=== PATIENT | female | born 1950 | race Caucasian/White ===

== ENCOUNTER 2016-06-02 18:45 | Emergency (ER) | payer BC, OTHER ==
[~2016-06-02 18:45] MED LIST: AMLO-110 PO; LISI-461 PO; TRIATAB3 PO
[2016-06-02 18:48] VITALS: BP 154/86; TEMP 36.4; Ht 157.5 cm
--- NOTE | 2016-06-02 19:25 | DIAGNOSTIC IMAGING REPORT ---
RIGHT KNEE 3 VIEWS HISTORY: Fall. Right knee pain. COMPARISON: None. FINDINGS: There is no fracture or dislocation. Mild cartilage space narrowing within the medial compartment of the knee. Mild patella baja. Small joint effusion. Extensive anterior soft tissue swelling. There is also soft tissue swelling and indistinctness at the quadriceps tendon. These findings are highly suspicious for quadriceps tendon tear. No radiopaque foreign bodies. IMPRESSION: 1. The above findings are highly suspicious for a quadriceps tendon tear. This can be confirmed with follow-up nonemergent MRI. 2. Small joint effusion. 3. No fractures within the right knee. Electronically signed by: Abbe Odom M.D. 06/02/2016 7:24 PM Dictated Date/Time: 06/02/2016 7:21 PM
[2016-06-02] MEDS ORDERED: ANAS1TAB6 PO (19:29)
[2016-06-02] MEDS ORDERED: PERCOCET HOME PACK PO ONE (20:00)
[2016-06-02] MEDS ORDERED: OXYCODONE/ACETAMINOPHEN 5-325 TAB PO ONE (20:00)
--- NOTE | 2016-06-02 20:04 | EMERGENCY ROOM VISIT NOTE ---
ED Visit Note First contact with patient: 18:55 I have seen and examined this patient with Meir Chávez and generally agree with the treatment plan as discussed. Current/Historical Medications Scheduled Amlodipine (Norvasc), 10 MG PO DAILY Anastrozole (Anastrozole), 1 TAB PO DAILY Lisinopril (Lisinopril), 10 MG PO DAILY Triamterene/Hctz (Triamterene/Hctz 37.5-25MG), 1 TAB PO DAILY Allergies Coded Allergies: No Known Allergies (Unverified , 06/02/16) Vital Signs Date Time Temp Pulse Resp B/P Pulse Ox O2 Delivery O2 Flow Rate FiO2 06/02/16 18:48 36.4 92 18 154/86 96 Room Air Departure Information Referrals Trina Campbell PA-C (PCP) Patient Instructions My [facility]
[2016-06-02] MEDS ORDERED: OXYC-57 PO (20:09)
--- NOTE | 2016-06-02 20:10 | EMERGENCY ROOM VISIT NOTE ---
ED Visit Note First contact with patient: 18:55 Chief Complaint: RIGHT Knee Injury History of Present Illness: This patient is a 65-year-old female who presents to the Emergency Department this evening for evaluation of their RIGHT Knee Injury. Patient states that they injured the knee while walking down the steps. They report moderate pain over the anterior aspect of the knee after feeling the knee pop. Pain is worse with ambulation. They deny any numbness or tingling into the distal extremity including the toes. They deny any pain extending into the affected foot or leg. Patient reports no previous fractures or surgeries of the affected knee. Patient rates her current discomfort as a 2/10. Patient has tried nothing for their pain. Medications: Reviewed and discussed with the patient. Allergies: No known allergies. PMH: No pertinent past medical history. SHx: Patient is a 65-year-old female who lives locally. ROS: All pertinent positive and negative review of systems are appropriately documented in the History of Present Illness. Physical Exam: VITAL SIGNS - Vital signs and nursing notes were reviewed. GENERAL - 65-year-old female appearing her stated age and in noticeable discomfort throughout the exam. MUSCULOSKELETAL - RIGHT knee with moderate edema noted to the suprapatellar area. Moderate tenderness to palpation appreciated over the affected area. +2/5 strength appreciated RIGHT versus left secondary to patient discomfort. No posterior sag sign. Unable to perform hip extension. NEUROLOGIC/VASCULAR - Neurovascularly intact distally with +3/5 dorsalis pedis pulses palpated bilaterally. Normal sensation to light and sharp touch appreciated distally. IMAGING: RIGHT KNEE 3 VIEWS HISTORY: Fall. Right knee pain. COMPARISON: None. FINDINGS: There is no fracture or dislocation. Mild cartilage space narrowing within the medial compartment of the knee. Mild patella baja. Small joint effusion. Extensive anterior soft tissue swelling. There is also soft tissue swelling and indistinctness at the quadriceps tendon. These findings are highly suspicious for quadriceps tendon tear. No radiopaque foreign bodies. IMPRESSION: 1. The above findings are highly suspicious for a quadriceps tendon tear. This can be confirmed with follow-up nonemergent MRI. 2. Small joint effusion. 3. No fractures within the right knee. ED Course: Patient was seen and evaluated by myself. Patient was provided an ice pack for comfort. Patient initially declined anything for their complaint of pain. X- rays were obtained of the affected knee. Imaging results as above. Images were discussed and reviewed with the patient who acknowledges understanding. Patient was provided a knee immobilizer for their comfort. Patient was provided Percocet for pain control at home. Patient educated on worrisome symptoms for return visit to the emergency department. Patient will follow-up with her established orthopedic surgeon on Sunday. She will return for changing or worsening symptoms. Patient discharged home in good condition. In the evaluation and treatment of this patient, the following differential diagnoses were considered: Patellar Fracture, Tibial Plateau Fracture, Distal Femur Fracture, ACL Injury, PCL Injury, Collateral Ligament Injury, Pes Anserine Bursitis, Maisonneuve Fracture. Given the patient's presentation and exam findings, I did elect to perform the above-mentioned workup. The patient presents today with pain and swelling to the anterior surface of the RIGHT knee. She has decreased range of motion, particularly with extension of the RIGHT lower started. She is unable to lift her heel for the bed. X-ray is concerning for quadriceps muscle tear. The patient is likely experiencing a partial tear of the quadriceps tendon. I do not feel that further imaging studies are necessary at this time. She is established with [facility] orthopedics. She was placed in a knee immobilizer for comfort. She will use crutches for ambulation. She will return to the emergency department for any change or worsening symptoms. Patient discharged home in good condition. Impression: RIGHT Quadriceps Tendon Tear Discharge Instructions: You have been treated in the Emergency Department for a RIGHT Quadriceps Tendon Tear. You have received pain medicine in the emergency department which impairs your ability to operate a vehicle. It is illegal for you to drive after receiving these medicines. You have been prescribed Percocet to be used for pain control. This is a narcotic medication. You cannot drive or consume alcohol while on this medicine. This medicine should only be used for pain that cannot be controlled with jqhm-hpw-khrkyay pain medicines. For pain control, you can use the following djue-ony-odvfzws medicines (if >12 yo): - Regular strength (325mg/tab) Tylenol (acetaminophen) 2 tabs every 4-6 hours as needed. Do not exceed 12 tablets in a 24 hour period. Avoid taking more than 4 grams (4000 mg) of Tylenol per day. This includes any other sources of acetaminophen you may take on a regular basis. - Regular strength (200 mg/tab) Advil (ibuprofen) 1-2 tabs every 4-6 hours as needed. Do not exceed a dose of 3200 mg per day. If this is a recent injury (<24 hrs), ice can be applied to the area of pain for the first 3 days to help decrease pain and inflammation. Ice massages can be performed by freezing water in a paper cup, peeling back the cup to expose the ice and then massaging over the affected area. You have been provided the number for an Orthopaedic Surgeon. You should call this number as soon as possible to establish a follow-up visit from today's Emergency Department visit. Keep the knee brace in place until cleared by Orthopedics. Use the crutches you have been provided to keep ALL weight off of the knee until weight bearing is tolerable. Return to the Emergency Department if your current symptoms worsen despite treatment course outlined above. Current/Historical Medications Scheduled Amlodipine (Norvasc), 10 MG PO DAILY Anastrozole (Anastrozole), 1 TAB PO DAILY Lisinopril (Lisinopril), 10 MG PO DAILY Triamterene/Hctz (Triamterene/Hctz 37.5-25MG), 1 TAB PO DAILY Scheduled PRN Oxycodone/Acetaminophen 5MG/325MG (Percocet 5MG/325MG), 1-2 TABS PO Q4 PRN for Pain Allergies Coded Allergies: No Known Allergies (Unverified , 06/02/16) Vital Signs Date Time Temp Pulse Resp B/P Pulse Ox O2 Delivery O2 Flow Rate FiO2 06/02/16 20:17 86 18 98 06/02/16 18:48 36.4 92 18 154/86 96 Room Air Medications Administered Medications (Trade) Dose Ordered Sig/Zee Route Start Time Stop Time Status Last Admin Dose Admin Oxycodone/ Acetaminophen (Percocet 5-325mg Tab) 1 tab NOW ONCE PO 06/02/16 20:00 06/02/16 20:02 DC 06/02/16 20:00 1 TAB Oxycodone/ Acetaminophen (Percocet 5/ 325MG Home Pack) 1 homepack UD ONCE PO 06/02/16 20:00 06/02/16 20:02 DC 06/02/16 20:00 1 HOMEPACK Departure Information Impression Primary Impression: Quadriceps tendon rupture Dispostion Home / Self-Care Condition GOOD Prescriptions Oxycodone/Acetaminophen 5MG/325MG (PERCOCET 5MG/325MG) Tab 1-2 TABS PO Q4 Y for Pain, #20 TAB For Initial Treatment Prov: Meir Chávez PA-C 06/02/16 Referrals Trina Campbell PA-C (PCP) Fitz Mcintosh M.D. Patient Instructions My [facility] Additional Instructions You have been treated in the Emergency Department for a RIGHT Quadriceps Tendon Tear. You have received pain medicine in the emergency department which impairs your ability to operate a vehicle. It is illegal for you to drive after receiving these medicines. You have been prescribed Percocet to be used for pain control. This is a narcotic medication. You cannot drive or consume alcohol while on this medicine. This medicine should only be used for pain that cannot be controlled with kezt-ldd-gdprmds pain medicines. For pain control, you can use the following rfap-xki-aqddwpl medicines (if >12 yo): - Regular strength (325mg/tab) Tylenol (acetaminophen) 2 tabs every 4-6 hours as needed. Do not exceed 12 tablets in a 24 hour period. Avoid taking more than 4 grams (4000 mg) of Tylenol per day. This includes any other sources of acetaminophen you may take on a regular basis. - Regular strength (200 mg/tab) Advil (ibuprofen) 1-2 tabs every 4-6 hours as needed. Do not exceed a dose of 3200 mg per day. If this is a recent injury (<24 hrs), ice can be applied to the area of pain for the first 3 days to help decrease pain and inflammation. Ice massages can be performed by freezing water in a paper cup, peeling back the cup to expose the ice and then massaging over the affected area. You have been provided the number for an Orthopaedic Surgeon. You should call this number as soon as possible to establish a follow-up visit from today's Emergency Department visit. Keep the knee brace in place until cleared by Orthopedics. Use the crutches you have been provided to keep ALL weight off of the knee until weight bearing is tolerable. Return to the Emergency Department if your current symptoms worsen despite treatment course outlined above. Problem Qualifiers Primary Impression: Quadriceps tendon rupture Encounter type: initial encounter Laterality: right Qualified Codes: S76.111A - Strain of right quadriceps muscle, fascia and tendon, initial encounter
[2016-06-02 20:17] VITALS: PULSE 86; O2SAT 98
[2016-06-06] MEDS ORDERED: ANAS1TAB6 PO (09:25)
[2016-06-06] MEDS ORDERED: AMLO-114 PO (09:25)
[2016-06-06] MEDS ORDERED: LISI-461 PO (09:25)
== END 2016-06-02 20:19 | disposition home or self-care (01) ==
LOC: C.EDB 18:46 → C.EDD 20:19
DX: S76.111A Strain of right quadriceps muscle, fascia and tendon, initial encounter (principal); X58.XXXA Exposure to other specified factors, initial encounter; R60.0 Localized edema

== ENCOUNTER → 2016-06-07 | Day surgery (SDC) | payer BC ==
[2016-06-05 16:46] LABS: MEAN CELL VOLUME 87.1 fL (80-100); MEAN CORPUSCULAR HGB CONC 33.3 g/dl (32-36); MEAN PLATELET VOLUME 8.8 fL (7.4-10.4); PLATELET COUNT 398 K/uL (130-400); RED BLOOD COUNT 4.82 M/uL (4.2-5.4); WHITE BLOOD COUNT 8.56 K/uL (4.8-10.8)
[2016-06-05 17:04] LABS: PROTHROMBIN TIME (PATIENT) 10.4 SECONDS (9.0-12.0)
[2016-06-06 09:25] VITALS: Ht 157.5 cm; Wt 84.5 kg
[~2016-06-07] VITALS: Ht 157.5 cm; Wt 84.5 kg
[~2016-06-07] MED LIST changes: -AMLO-110 PO; +AMLO-114 PO; +ANAS1TAB6 PO; +ATROPINE SULFATE 0.1 MG/ML 5ML SYR IV PRN; +BUPIVACAINE/EPINEPHRINE 0.5% MPF 1:200,000 30 ML VIAL ONE; +CEFAZOLIN 2000 MG/60 ML D5W IV SCH; +CEFAZOLIN IV 2,000 MG/60 ML D5W IV ONE; +DEXAMETHASONE SOD INJ 4 MG/ML VIAL ONE; +EpHEDrine SULFATE INJ 50 MG/ML AMP IV PRN; +FENTANYL CITRATE INJ 50 MCG/1 ML 2 ML VIAL ONE; +LACTATED RINGER'S 1000ML 1,000 ML IV SCH; +LIDOCAINE HCL 1% 20 ML VIAL ONE; +LIDOCAINE HCL 2% 2 ML VIAL (20MG/ML) ONE; +MIDAZOLAM HCL 1 MG/ML 2ML VIAL ONE; +MoRPHine SULFATE 2 MG/ML CARP IV PRN; +MoRPHine SULFATE 4 MG/ML 1 ML CARP\\VIAL IV PRN; +ONDANSETRON INJ 2 MG/ML 2 ML VIAL IV PRN; +ONDANSETRON INJ 2 MG/ML 2 ML VIAL ONE; +OXYCODONE/ACETAMINOPHEN 5-325 TAB PO PRN; +PROPOFOL IV EMULSION 10 MG/ML 20 ML VIAL IV ONE; +ROPIVACAINE 0.5% 5 MG/ML 30 ML VIAL ONE; -TRIATAB3 PO
--- NOTE | 2016-06-07 12:56 | History & Physical Bridge - SC ---
H&P Re-Evaluation Bridge Note: I have examined the patient, reviewed the History & Physical and in the interval since the performance of the History & Physical I have noted the following changes of clinical significance: No changes noted
--- NOTE | 2016-06-07 15:00 | [facility] Post Operative Brief Note ---
Immediate Operative Summary Operative Date Jun 07, 2016. Pre-Operative Diagnosis Right Quadriceps Tendon Tear Post-Operative Diagnosis same Procedure(s) Performed Right Quadriceps Tendon Repair Surgeon Dr. Dayo Ramey Mold Yard Supervisor Surgeon(s) Feliz Munoz, Student PA Estimated Blood Loss 15ml Findings Complete rupture Right quad tendon Fluids (cc crystalloids) 900 Specimens NONE Drains n/a Anesthesia LMA Complication(s) None Disposition Recovery Room / PACU (Stable)
--- NOTE | 2016-06-07 15:08 | Discharge Instructions-SurgCtr ---
Discharge Instructions Date of Service Jun 07, 2016. Visit Reason for Visit: Right Quadriceps Tendon Tear; S76.111a, Z01.818 Discharge Discharge Diagnosis / Problem: S/P Right Quad tendon repair Discharge Goals Goal(s): Decrease discomfort, Improve function, Increase independence Activity Recommendations Activity Limitations: per Instructions/Follow-up section May Resume Sexual Activity: when tolerated Shower/Bathe: may shower/bathe in 3 days Driving or Machine Use: Not for minimum 6 weeks Weightbearing Status: Right weightbearing (as tolerated with brace locked in extension) Anesthesia . Post Anesthesia Instructions: If you have had General Anesthesia or IV Sedation: * Do not drive today. * Resume driving when surgeon permits. * Do not make important decisions or sign legal documents today. * Call surgeon for: 1. Temperature elevations greater than 101 degrees F. 2. Uncontrollable pain. 3. Excessive bleeding. 4. Persistent nausea and vomiting. 5. Medication intolerance (nausea, vomiting or rash). * For nausea and vomiting use only clear liquids such as: tea, soda, bouillon until nausea subsides, then gradually increase diet as tolerated. * If you have any concerns or questions, call your surgeon's office. If physician is unavailable and it is an emergency, call 911 or go to the nearest emergency room. . Diet Recommendations Home Diet: resume previous diet Procedures Procedures Performed: Right Quadriceps Tendon Repair Pending Studies Studies pending at discharge: no Medical Emergencies . Who to Call and When: Medical Emergencies: If at any time you feel your situation is an emergency, please call 911 immediately. . Non-Emergent Contact Non-Emergency issues call your: Surgeon Call Non-Emergent contact if: temperature is above 101.5, your pain is not controlled, wound has increased drainage, wound has increased redness . . "Provider Documentation" section prepared by Dayo Ramey.
--- NOTE | 2016-06-07 15:09 | [facility] Operative Report ---
Operative Report Operative Date Jun 07, 2016. Pre-Operative Diagnosis Right Quadriceps Tendon Tear Post-Operative Diagnosis same Procedure(s) Performed Right Quadriceps Tendon Repair Surgeon Dr. Dayo Ramey Cisco Consultant Surgeon(s) Dr. Ervin, Feliz Chris, Student PA Estimated Blood Loss 15ml Findings Complete Tear Right Quad tendon. Fluids (cc crystalloids) 900 Specimens NONE Drains n/a Anesthesia LMA Complication(s) None Disposition Recovery Room / PACU (Stable) Implants JUGGERKNOT 2.9 MM DOUBLE LOADED X2 (BIOMET) Indications The patient is a 65 year old female who sustained a right quad tendon rupture. After a lengthy discussion with her regarding her treatment options of conservative versus surgical intervention, the patient has elected to proceed with surgical intervention. The patient understands the risks of surgery, which include but are not limited to: bleeding, infection, re-operation, damage to nerves and arteries, continued pain, decreased level of activity, knee stiffness, and DVT. The patient understands all of these instructions and explanations, all of their questions have been satisfactorily addressed. The patient has elected to proceed with surgery and the informed consent was signed. Description of Procedure The patient was taken to the Operating Room and placed in the supine position on the operating table. After general anesthetic was administered a multidisciplinary time-out was performed identifying my initials on the right lower limb as the correct and operative limb. Prior to the incision being made , 2 grams of intravenous Ancef were given. The right leg was prepped and draped in the standard orthopaedic sterile fashion. The planned longitudinal incision approximately 7 cm, centered about the quad tendon defect and in the midline was marked. The incision was injected with a 50:50 mixture of 1% Lidocaine plain and 0.5% Marcaine for a total of 10 cc. The skin incision was made down to the quad tendon fascia and the defect was easily found with noted hematoma. Large skin flaps were made both medially and laterally. The hematoma and any frayed and degenerative tendon was sharply excised. The wound was copiously irrigated. The tear extended into the vastus lateralis and there was an oblique tear of the medial retinaculum. The soft tissue was debrided superiorly off the patella for better expose and anchor placement. The medial and lateral retinaculum had 0 Vicryl placed in a figure- of-eight fashion for later tying. The proximal portion of the patella was prepped with rongeur and curettes. With the knee in a slightly flexed position two, 2.9 mm JuggerKnot, anchors were placed one medially and one laterally at the quad tendon insertion. Then 1 strand from each suture was run up the quad tendon in a Krackow fashion and they were tied together. The other two ends of these sutures were passed through the distal end of the quad tendon and used to reduce the quad tendon to the patella with the knee in extension and tied. The 0 Vicryl sutures in the medial and lateral retinaculum were sequentially tied in the standard fashion. The sutures from the anchors were used in a baseball stitch fashion to reinforce the repair all the way to the retinacular repair and tied together. There was no tension or gapping on the repair with the knee flexed 90 degrees. 2-0 Vicryl was used to close the overlying fascia. The wound was copiously irrigated. The subcutaneous layer was closed with 3-0 Vicryl. The skin was closed derick. The incision was covered with Xeroform, 4x4's, ABD, sterile cast padding, an KURT, and a range of motion knee brace locked in extension. The sponge and needle counts were correct. POST-OP INSTRUCTIONS: Pain medicine prescription was given pre-operatively to be taken as needed. He will be weight bearing as tolerated with the brace locked in extension on the right lower extremity. The patient will start physical therapy in 2 days. The patient will follow up with me in 10-15 days. I attest to the content of the Intraoperative Record and any orders documented therein. Any exceptions are noted below.
--- NOTE | 2016-06-07 15:30 | [facility] Post Operative Brief Note ---
Immediate Operative Summary Operative Date Jun 07, 2016. Pre-Operative Diagnosis Right Quadriceps Tendon Tear Post-Operative Diagnosis same Procedure(s) Performed Right Quadriceps Tendon Repair Surgeon Dr. Dayo Ramey Corrugator Machine Operator Surgeon(s) Feliz Munoz, Student PA Estimated Blood Loss 15ml Fluids (cc crystalloids) 900 Specimens NONE Complication(s) None Disposition PCU
[2016-06-07] MEDS: HYDROmorphone INJ 1 MG/ML SYR IV PRN ×8 (15:34→16:19)
[2016-06-07] MEDS: FENTANYL CITRATE INJ 50 MCG/1 ML 2 ML VIAL IV PRN ×2 (16:25→16:33)
[2016-06-07 17:06] VITALS: TEMP 37.8
--- NOTE | 2016-06-07 17:34 | Anesthesia Progress Nt - [facility] ---
Anesthesia Post Op Note Date & Time Jun 07, 2016 at 17:33 Vital Signs Pain Intensity: 7 Vital Signs Past 12 Hours Date Time Temp Pulse Resp B/P Pulse Ox O2 Delivery O2 Flow Rate FiO2 06/07/16 17:06 37.8 103 12 151/85 96 Room Air 06/07/16 16:57 93 15 06/07/16 16:57 91 15 96 06/07/16 16:56 170/92 06/07/16 16:52 84 14 06/07/16 16:52 78 14 90 06/07/16 16:51 161/80 06/07/16 16:50 86 18 06/07/16 16:50 90 18 95 06/07/16 16:49 38.1 88 13 161/80 96 Room Air 06/07/16 16:46 167/90 06/07/16 16:45 87 10 98 06/07/16 16:45 87 10 06/07/16 16:41 153/86 06/07/16 16:40 86 13 06/07/16 16:40 85 13 92 06/07/16 16:36 162/95 06/07/16 16:36 165/87 06/07/16 16:35 78 7 06/07/16 16:35 82 7 100 06/07/16 16:31 159/75 06/07/16 16:30 84 7 06/07/16 16:30 85 7 100 06/07/16 16:26 168/87 06/07/16 16:25 81 4 06/07/16 16:25 79 4 100 06/07/16 16:21 170/90 06/07/16 16:20 81 9 100 06/07/16 16:20 76 9 06/07/16 16:18 169/108 06/07/16 16:16 164/90 06/07/16 16:15 82 3 100 06/07/16 16:15 81 3 06/07/16 16:12 167/88 06/07/16 16:11 172/91 06/07/16 16:10 80 4 06/07/16 16:10 80 4 100 06/07/16 16:06 147/80 06/07/16 16:05 79 15 06/07/16 16:05 80 15 100 06/07/16 16:01 145/82 06/07/16 16:00 76 11 06/07/16 16:00 78 11 100 06/07/16 15:56 140/82 06/07/16 15:55 72 18 100 06/07/16 15:55 69 18 06/07/16 15:51 129/77 06/07/16 15:50 74 13 100 06/07/16 15:50 72 13 06/07/16 15:46 150/72 06/07/16 15:45 65 12 06/07/16 15:45 71 12 100 06/07/16 15:41 131/68 06/07/16 15:40 66 17 06/07/16 15:40 65 17 100 06/07/16 15:37 140/82 06/07/16 15:35 64 13 100 06/07/16 15:35 66 13 06/07/16 15:31 138/66 06/07/16 15:30 61 17 100 06/07/16 15:30 61 17 06/07/16 15:26 146/76 06/07/16 15:25 73 12 100 06/07/16 15:25 72 12 06/07/16 15:21 150/89 06/07/16 15:20 36.9 76 20 150/89 98 Diffusion Mask 6 76 06/07/16 12:21 36.9 80 16 158/86 97 Room Air Notes Mental Status: alert / awake / arousable, participated in evaluation Pt Amnestic to Procedure: Yes Nausea / Vomiting: adequately controlled Pain: adequately controlled, improving with treatment Airway Patency, RR, SpO2: stable & adequate BP & HR: stable & adequate Hydration State: stable & adequate Anesthetic Complications: no major complications apparent Pain declined postoperative nerve block. Prefers to try and manage with PO medications. She has voided and is tolerating crackers without complaints of nausea. Pain improving and plan for one percocet to ensure she doesn't become oversedated. All questions answered and she is ok for discharge to home.
[2016-06-07 17:47] VITALS: BP 163/94; PULSE 99; O2SAT 96
== END | disposition home or self-care (01) ==
LOC: X.SURG 11:48
PROVIDERS: ATTEND Orthopaedic Surgery Sports Medicine
DX: S76.111A Strain of right quadriceps muscle, fascia and tendon, initial encounter (principal); Y93.01 Activity, walking, marching and hiking; I10 Essential (primary) hypertension; K21.9 Gastro-esophageal reflux disease without esophagitis; Y92.89 Other specified places as the place of occurrence of the external cause; Y99.8 Other external cause status; Z85.3 Personal history of malignant neoplasm of breast; Z90.10 Acquired absence of unspecified breast and nipple; Z98.890 Other specified postprocedural states

== ENCOUNTER → 2017-02-07 | Day surgery (SDC) | payer BC ==
[2017-01-29 07:59] VITALS: Ht 157.5 cm; Wt 84.5 kg
[~2017-02-07] VITALS: Ht 157.5 cm; Wt 84.5 kg
[~2017-02-07] MED LIST changes: -ATROPINE SULFATE 0.1 MG/ML 5ML SYR IV PRN; -BUPIVACAINE/EPINEPHRINE 0.5% MPF 1:200,000 30 ML VIAL ONE; -CEFAZOLIN 2000 MG/60 ML D5W IV SCH; -CEFAZOLIN IV 2,000 MG/60 ML D5W IV ONE; -DEXAMETHASONE SOD INJ 4 MG/ML VIAL ONE; -EpHEDrine SULFATE INJ 50 MG/ML AMP IV PRN; -FENTANYL CITRATE INJ 50 MCG/1 ML 2 ML VIAL ONE; -LACTATED RINGER'S 1000ML 1,000 ML IV SCH; -LIDOCAINE HCL 1% 20 ML VIAL ONE; -MoRPHine SULFATE 2 MG/ML CARP IV PRN; -MoRPHine SULFATE 4 MG/ML 1 ML CARP\\VIAL IV PRN; -ONDANSETRON INJ 2 MG/ML 2 ML VIAL IV PRN; -OXYCODONE/ACETAMINOPHEN 5-325 TAB PO PRN; -ROPIVACAINE 0.5% 5 MG/ML 30 ML VIAL ONE; +SODIUM CHLORIDE 0.9% 500ML 500 ML IV ONE
[2017-02-07 13:05] VITALS: TEMP 36.7
--- NOTE | 2017-02-07 13:13 | Endo History and Physical ---
History & Physical Date of Service: Feb 07, 2017. Chief Complaint: Screening, Hx of colon polyps Referring Physician: CONSUELO Verde Dr Doucette History of Present Illness 66 yo CF who presents for colonoscopy secondary to history of colon polyps. Past Medical History Hypertension Past Surgical History Hx Cardiac Surgery: No Hx Internal Defibrillator: No Hx Pacemaker: No Hx Abdominal Surgery: Yes () Hx Post-Op Nausea and Vomiting: No Hx Cancer Surgery: Yes (BILATERAL MASTECTOMY WITH RECONSTRUCTION & TISSUE EXPANDERS) Hx Thoracic Surgery: No Hx Orthopedic: Yes (LEFT ORIF ANKLE (HARDWARE), RT QUAD TENDON REPAIR) Hx Urinary Tract Surgery: No Family History Colon CA Social History Smoking Status: Never Smoker Hx Substance Use: No Hx Alcohol Use: Yes (OCCASIONALLY) Allergies Coded Allergies: No Known Allergies (Verified , 02/07/17) Current Medications Reported Home Medications Medications Dose Route/Sig Max Daily Dose Days Date Category Anastrozole 1 Mg Tab 1 Tab PO QAM 90 06/06/16 Reported Zestril (Lisinopril) 10 Mg Tab 10 Mg PO QAM 06/06/16 Reported Norvasc (Amlodipine Besylate) 10 Mg Tab 10 Mg PO QAM 06/06/16 Reported Vital Signs Weight (Kilograms): 84.55 Height (Feet): 5 Height (Inches): 2 Date Time Temp Pulse Resp B/P (MAP) Pulse Ox O2 Delivery O2 Flow Rate FiO2 02/07/17 13:05 36.7 87 20 205/110 (141) 94 Room Air Physical Exam General Appearance: WD/WN, no apparent distress Respiratory/Chest: Auscultation: breath sounds normal Cardiovascular: Heart Auscultation: RRR Abdomen: Bowel Sounds: normal Inspection & Palpation: soft, non-distended, no tenderness, guarding & rebound Assessment and Plan Assessment: 66 yo CF who presents for colonoscopy secondary to history of colon polyps. Plan: Proceed with colonoscopy.
--- NOTE | 2017-02-07 14:03 | Discharge Instructions ---
Endoscopy Patient Instructions Date / Procedure(s) Performed Feb 07, 2017. Colonoscopy Allergy Information Coded Allergies: No Known Allergies (Verified , 02/07/17) Discharge Date / Findings Feb 07, 2017. Diverticulosis Internal hemorrhoids Medication Instructions OK to resume all medications today as prescribed Reported Home Medications Medications Dose Route/Sig Max Daily Dose Days Date Category Anastrozole 1 Mg Tab 1 Tab PO QAM 90 06/06/16 Reported Zestril (Lisinopril) 10 Mg Tab 10 Mg PO QAM 06/06/16 Reported Norvasc (Amlodipine Besylate) 10 Mg Tab 10 Mg PO QAM 06/06/16 Reported Provider Instructions Activity Restrictions - No exercising or heavy lifting for 24 hours. - Do not drink alcohol the day of the procedure. - Do not drive a car or operate machinery until the day after the procedure. - Do not make any important decisions or sign important papers in 24 hours after the procedure. Following Day: - Return to full activity which may include returning to work/school. Diet Start your diet with liquids and light foods (jello, soup, juice, toast). Then eat your usual diet if not nauseated. Treatment For Common After Affects For mild abdominal pain, bloating, or excessive gas: - Rest - Eat lightly - Lie on right side Follow-Up Information Follow-up with [facility], Dr Schaffer as scheduled Anesthesia Information What You Should Know You have had a procedure that required some medicine to reduce anxiety and discomfort. This treatment is called moderate sedation. After receiving the treatment, you may be sleepy, but you will be able to breathe on your own. The effects of the treatment may last for several hours. Follow these instructions along with Activity/Diet recommendations noted above: * Do NOT do anything where dizziness or clumsiness would be dangerous. * Rest quietly at home today, then you can be up and about tomorrow. * Have a responsible person stay with you the rest of today. * You may have had an I.V. today. If so, you may take the dressing off later today. Recommendations Call your doctor if: * Trouble breathing * Continuous vomiting for more than 24 hours * Temperature above 101 degrees * Severe abdominal pain or bloating * Pain not relieved by pain medicine ordered * There is increased drainage or redness from any incision * A large amount of rectal bleeding greater than 2-3 tablespoons. (If you had a polyp/s removed or have hemorrhoids, a small amount of blood - from the rectum is to be expected.) * You have any unanswered questions or concerns. IN THE EVENT OF A SERIOUS EMERGENCY, GO TO THE NEAREST EMERGENCY ROOM Your discharge instructions were prepared by provider Everardo Recinos. Patient Instructions Signature Page Jerilyn Loving Patient (or Guardian) Signature/Date: I have read and understand the instructions given to me by my caregivers. Caregiver/RN/Doctor Signature/Date: The above-named patient and/or guardian has received patient instructions on this date. + Original Patient Signature Page (only) stays with chart. Please make copy for patient.
--- NOTE | 2017-02-07 14:07 | Anesthesiology Progress Note ---
Anesthesia Post Op Note Date & Time Feb 07, 2017 at 14:07 Vital Signs Pain Intensity: 0 Vital Signs Past 12 Hours Date Time Temp Pulse Resp B/P (MAP) Pulse Ox O2 Delivery O2 Flow Rate FiO2 02/07/17 13:59 76 18 149/97 (114) 94 Room Air 02/07/17 13:44 79 17 127/59 (81) 94 Room Air 02/07/17 13:05 36.7 87 20 205/110 (141) 94 Room Air Notes Mental Status: alert / awake / arousable, participated in evaluation Pt Amnestic to Procedure: Yes Nausea / Vomiting: adequately controlled Pain: adequately controlled Airway Patency, RR, SpO2: stable & adequate BP & HR: stable & adequate Hydration State: stable & adequate Anesthetic Complications: no major complications apparent
--- NOTE | 2017-02-07 14:09 | GI REPORT ---
Procedure Date: 02/07/2017 1:22 PM Procedure: Colonoscopy Indications: Screening for colorectal malignant neoplasm Medicines: Monitored Anesthesia Care Complications: No immediate complications. Estimated Blood Loss: Estimated blood loss: none. Procedure: Pre-Anesthesia Assessment: - Prior to the procedure, a History and Physical was performed, and patient medications and allergies were reviewed. The patient's tolerance of previous anesthesia was also reviewed. The risks and benefits of the procedure and the sedation options and risks were discussed with the patient. All questions were answered, and informed consent was obtained. Prior Anticoagulants: The patient has taken no previous anticoagulant or antiplatelet agents. ASA Grade Assessment: II - A patient with mild systemic disease. After reviewing the risks and benefits, the patient was deemed in satisfactory condition to undergo the procedure. After I obtained informed consent, the scope was passed under direct vision. Throughout the procedure, the patient's blood pressure, pulse, and oxygen saturations were monitored continuously. The scope was introduced through the anus and advanced to the terminal ileum. The colonoscopy was performed without difficulty. The patient tolerated the procedure well. The quality of the bowel preparation was good. The terminal ileum, ileocecal valve, appendiceal orifice, and rectum were photographed. Findings: The perianal and digital rectal examinations were normal. Multiple small-mouthed diverticula were found in the sigmoid colon. Non-bleeding internal hemorrhoids were found during retroflexion. The hemorrhoids were small. Impression: - Diverticulosis in the sigmoid colon. - Non-bleeding internal hemorrhoids. - No specimens collected. Recommendation: - Resume previous diet. - Continue present medications. - Repeat colonoscopy in 5 years for surveillance. - Return to primary care physician as previously scheduled. Everardo Recinos DO 02/07/2017 2:09:15 PM This report has been signed electronically. Note Initiated On: 02/07/2017 1:22 PM I attest to the content of the Intraoperative Record and orders documented therein, exceptions below
[2017-02-07 14:14] VITALS: BP 147/89; PULSE 68; O2SAT 94
== END | disposition home or self-care (01) ==
LOC: C.GI 12:42
PROVIDERS: ATTEND Internal Medicine
DX: Z12.11 Encounter for screening for malignant neoplasm of colon (principal); K57.30 Diverticulosis of large intestine without perforation or abscess without bleeding; K64.8 Other hemorrhoids; Z86.010 Personal history of colon polyps; I10 Essential (primary) hypertension; Z90.13 Acquired absence of bilateral breasts and nipples; Z98.890 Other specified postprocedural states; E66.9 Obesity, unspecified; Z68.34 Body mass index [BMI] 34.0-34.9, adult; Z80.0 Family history of malignant neoplasm of digestive organs